=== PATIENT | male | born 1980 | race Caucasian/White ===

== ENCOUNTER 2020-09-19 12:20 | Emergency (ER) | payer MEDICAID, SELFPAY ==
--- NOTE | ~2020-09-19 | CT_ITS ---
EXAMINATION: CT ABDOMEN AND PELVIS WITH CONTRAST CLINICAL INFORMATION: Diffuse rebound tenderness COMPARISON: None TECHNIQUE: Multidetector volumetric images were obtained from the superior aspect of the liver through the pubic symphysis following administration 85 mL of Omnipaque 350 intravenous contrast. Sagittal and coronal reformatted images were obtained on the technologist's workstation. Oral contrast: No This CT examination was performed using dose optimization techniques as appropriate, variously including the following: *Automated exposure control *Adjustment of mA and/or kV according to patient size (this includes techniques or standardized protocols for targeted exams where dose is matched to indication/reason for exam; i.e. extremities or head) *Use of iterative reconstruction technique DLP: 539 mGy-cm FINDINGS: LUNG BASES: Some mild tree-in-bud changes are present at the lung bases indicative of airway disease. LIVER, GALLBLADDER, AND BILIARY TREE: The liver is normal in size, shape, and attenuation. No focal hepatic lesion or biliary ductal dilatation is present. The gallbladder is unremarkable with no evidence of radiopaque gallstones, gallbladder wall thickening, or obvious pericholecystic inflammatory changes. PANCREAS: Unremarkable. SPLEEN: Unremarkable. ADRENAL GLANDS: Unremarkable. KIDNEYS AND URETERS: The kidneys are normal in size, shape, and attenuation. A small cyst is present in the mid right kidney. No solid masses are seen. No hydronephrosis, hydroureter, or calculi seen. No perinephric stranding. BLADDER: Unremarkable. GASTROINTESTINAL TRACT: The small and large bowel are unremarkable. The appendix is unremarkable. ABDOMINAL WALL: No significant hernia is appreciated. LYMPH NODES: No retroperitoneal lymphadenopathy. VASCULAR: Calcific atherosclerotic plaque in the aorta and iliac vessels but no aneurysm. PELVIC VISCERA: Prostate and seminal vesicles appear normal. No ascites is present. No free air is seen. OSSEOUS STRUCTURES: Mild spondylitic changes present in the spine. Posterior osteophyte protrudes mildly into the thecal sac at L4-L5. CT/CT abdomen pelvis w con IMPRESSION: A cause for the patient's rebound tenderness is not found. No significant abnormality is detected. Incidental findings described above.
[2020-09-19 13:51] VITALS: PULSE 92; RESP 16; TEMP 36.6; O2SAT 99; BMI 27.1
[2020-09-19 15:51] LABS: MANUAL DIFF FLAG NO
[2020-09-19 15:52] LABS: Basophils Percent Auto 0.4 % (0-2); Eosinophils Absolute Auto 0.3 X10*3/uL (0.0-0.4); Hematocrit 44.6 % (42-52); Hemoglobin 15.7 g/dl (14.0-18.0); Imm Gran Abs Auto 0.03 X10*3/uL (0.00-0.03); Imm Gran Pct Auto 0.4 % (0.0-0.4); Lymphocytes Absolute Auto 3.1 X10*3/uL (1.2-4.9); Lymphocytes Percent Auto 41.9 % (20-40); Mean Corpuscular HGB Conc 35.2 g/dl (31.0-36.0); Mean Corpuscular Hemoglobin 31.2 pg (27.0-33.0); Mean Corpuscular Volume 88.5 fL (80-98); Mean Platelet Volume 10.1 fL (9.4-12.4); Monocytes Absolute Auto 0.5 X10*3/uL (0.1-1.2); Monocytes Percent Auto 7.1 % (2-11); Neutrophils Absolute Auto 3.4 X10*3/uL (2.0-8.3); Neutrophils Percent Auto 46.2 % (45-73); Platelet Count 194 X10*3/uL (160-400); Red Blood Count 5.04 X10*6/uL (4.60-5.80); Red Cell Distribution Width 12.9 % (11.0-16.0); White Blood Count 7.3 X10*3/uL (4.8-10.8)
[2020-09-19 16:18] LABS: Anion Gap 17 (12-20); Blood Urea Nitrogen 10 mg/dL (9-16); Calcium 9.4 mg/dL (8.4-10.2); Carbon Dioxide 26 mmol/L (22-29); Chloride 106 mmol/L (96-108); Creatinine Clr Calc Pharmacy 146.1; Estimated Glomerular Filt Rate > 60; Glucose Random 98 mg/dL (60-115); Potassium 4.1 mmol/L (3.3-5.1); Sodium 145 mmol/L (135-145)
[2020-09-19] MEDS: Acetaminophen 325 MG TABLET 650 MG PO (17:59)
--- NOTE | 2020-09-19 18:11 | ED.ABDPAIN ---
HPI - Abdominal Pain General Chief Complaint: Abdominal Pain Stated Complaint: abdominal pain Source: patient Mode of arrival: ambulatory Limitations: no limitations History of Present Illness HPI narrative: 39-year-old male presents with 3 days of 10/10 lower abdominal pain primarily on the right side radiating down into the pelvis. States that is very difficult to move and that his abdomen is very tender to touch. He also mentioned that he had some umbilical erythema with some purulent drainage from the site. He does not have any prior abdominal surgeries. He does report drinking alcohol last night to help alleviate the pain. He does not report any chest pain or pressure, palpitations, shortness of breath, shortness breath on exertion, fevers, chills, nausea, vomiting, diarrhea, constipation, testicular pain, penile pain, edema, loss of balance, loss of sensation, or any other concerning symptoms. MD elicited complaint: abdominal pain Onset (ago): day(s) (Three) Pain Consistency: constant Location: RLQ, LLQ and suprapubic Severity: severe Pain scale (0-10): 10 Quality: aching Exacerbating factors: movement Relieving factors: nothing Associated symptoms: denies other symptoms Related Data Previous Rx's Medication Instructions Recorded amoxicillin-pot clavulanate 1 tab PO Q12H 10 Days #20 tab 09/19/20 [Augmentin] Allergies Allergy/AdvReac Type Severity Reaction Status Date / Time No Known Allergies Allergy Verified 09/19/20 18:18 Review of Systems Review of Systems Constitutional: No Weight loss, No Fever, No Chills, positive Night Sweats, No Fatigue, No Malaise ENT/Mouth: No Hearing loss, No Ear Pain, No Nasal Congestion, No Sinus Pain, No Hoarseness, No sore throat, No Rhinorrhea, No Swallowing Difficulty Eyes: No Eye Pain, No Swelling, No Redness, No Foreign Body, No Discharge, No Vision Changes Cardiovascular: No Chest Pain, No SOB, No Dyspnea on Exertion, No Orthopnea, No Edema, No Palpitations Respiratory: No Cough, No Sputum, No Wheezing, No Smoke Exposure, No Dyspnea Gastrointestinal: No Nausea, now Vomiting, no Diarrhea, positive abdominal Pain, No Hematochezia, No Melena Genitourinary: no irregular bleeding, No Dysuria, No Urinary Frequency, No Hematuria, No Urinary Incontinence, No Urgency, No Flank Pain, No Urinary Flow Changes, No Hesitancy Musculoskeletal: No joint pain, No Myalgias, No Joint Swelling Skin: Umbilical erythema with purulent drainage, No Skin Lesions, No rash Neuro: No Weakness, No Numbness, No Paresthesias, No Loss of Consciousness, No Dizziness, No Headache Psych: No Anxiety/Panic, No Depression, No SI/HI/AH/VH, No Social Issues Heme/Lymph: No Bruising, No Bleeding,No Lymphadenopathy Endocrine: No Polyuria, No Polydipsia, No Temperature Intolerance Yes all other systems are reviewed and are negative Physical Exam Vital Signs: Vital Signs: Last Vital Signs Temp 98 F 09/19/20 13:51 Pulse 92 09/19/20 13:51 Resp 16 09/19/20 13:51 Pulse Ox 99 09/19/20 13:51 Body Mass Index 27.1 Appearance: Alert. Oriented X3. Moderate distress. Head: Normal external exam. Normocephalic. Atraumatic. Facial erythema noted. Eyes: PERRLA. EOMI. Conjunctiva and sclera normal. Eyelids normal. ENT: TM's Normal. Pharynx normal. Uvula midline. Moist mucous membranes. No trismus noted. No drooling noted. No muffled voice noted. Neck: Normal inspection. Neck supple. No adenopathy. CVS: Tachycardic heart rate and rhythm. Heart sound normal. No murmurs noted. Pulses equal to all extremities. Respiratory: No respiratory distress. Painless inspiration. Lung sounds clear to auscultation all lobes. Chest nontender. No accessory muscle usage noted or decreased air movement noted. Abdomen: Soft and diffusely tender with rebound tenderness on the right lower quadrant. Bowel sounds normal in all 4 quadrants. No distention noted. No organomegaly noted. No visible injury noted. Back: No CVA tenderness. Full range of motion noted. Genitourinary: No testicular pain or abnormalities noted. Skin: Erythema to the umbilicus, Skin warm and dry. Normal skin color. Normal skin turgor. No rashes/lesions/lacerations noted. Extremities: No lower extremity edema. Extremities exhibit normal range of motion. Extremities nontender. Neuro: cranial nerves 2-12 intact, no focal neural deficits, strength 5/5 to all extremities, No motor deficit. No sensory deficit. Course Course Course Narrative: 39-year-old male with no significant past medical history presents with 3 days of 10/10 abdominal pain. States that he feels like he has a hernia, and he is unable to touch his abdomen because of the pain. States that he did drink alcohol to alleviate his pain last night and this morning. 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 Does not report any fevers or chills, CBC and Chem 7 completed in the emergency department waiting room. Lab values are within normal limits. Based on patient's physical exam of diffuse tenderness with rebound will order CT scan of the abdomen pelvis, add on lipase and LFTs. LFTs and liver enzymes are negative. Urinalysis is negative. CT scan is negative for acute findings. Will treat for cellulitis. Patient verbalized understanding of and agrees to plan of care discharge home. MDM - Abdominal Pain Differential Diagnosis Differential diagnosis: Likely abdominal pain, acute appendicitis, bowel perforation, calculus of kidney and diverticulitis Medical Records Attestation: I reviewed the patient's medical records. Lab Data Attestation: I reviewed the patient's lab results. Result diagrams: 09/19/20 15:38 09/19/20 15:38 Labs: Lab Results 09/19/20 09/19/20 09/19/20 Range/Units 15:38 15:38 18:38 WBC 7.3 (4.8-10.8) X10*3/uL RBC 5.04 (4.60-5.80) X10*6/uL Hgb 15.7 (14.0-18.0) g/dl Hct 44.6 (42-52) % MCV 88.5 (80-98) fL MCH 31.2 (27.0-33.0) pg MCHC 35.2 (31.0-36.0) g/dl RDW 12.9 (11.0-16.0) % Plt Count 194 (160-400) X10*3/uL MPV 10.1 (9.4-12.4) fL Immature Gran % (Auto) 0.4 (0.0-0.4) % Neut % (Auto) 46.2 (45-73) % Lymph % (Auto) 41.9 H (20-40) % [place] % (Auto) 7.1 (2-11) % Eos % (Auto) 4.0 (0-4) % Baso % (Auto) 0.4 (0-2) % Lymph # (Auto) 3.1 (1.2-4.9) X10*3/uL [place] # (Auto) 0.5 (0.1-1.2) X10*3/uL Eos # (Auto) 0.3 (0.0-0.4) X10*3/uL Baso # (Auto) 0.0 (0.0-0.2) X10*3/uL Abs Immat Gran (auto) 0.03 (0.00-0.03) X10*3/uL Absolute Neuts (auto) 3.4 (2.0-8.3) X10*3/uL Absolute Nucleated RBC 0.000 (0.0-0.012) X10*3/uL Nucleated RBC % (auto) 0.0 (0.0-0.2) /100WBC PT 11.6 (10.8-13.0) SEC INR 1.0 (0.9-1.1) APTT 36.8 (24.1-38.0) SEC Sodium 145 (135-145) mmol/L Potassium 4.1 (3.3-5.1) mmol/L Chloride 106 (96-108) mmol/L Carbon Dioxide 26 (22-29) mmol/L Anion Gap 17 (12-20) BUN 10 (9-16) mg/dL Creatinine 0.73 (0.5-1.4) mg/dL Estim Creat Clear Calc 146.1 Estimated GFR > 60 Random Glucose 98 (60-115) mg/dL Calcium 9.4 (8.4-10.2) mg/dL Magnesium (1.6-2.6) mg/dL Total Bilirubin (0.0-1.0) mg/dL Direct Bilirubin (0.0-0.5) mg/dL AST (5-37) U/L ALT (0-40) U/L Alkaline Phosphatase (39-117) U/L Total Protein (6.5-8.0) g/dL Albumin (3.5-5.0) g/dL Lipase (8-78) U/L Urine Color Urine Appearance Urine pH (5.0-8.0) Ur Specific [place] (1.005-1.025) Urine Protein (NEG-TRACE) MG/DL Urine Glucose (UA) (NEG) MG/DL Urine Ketones (NEG) MG/DL Urine Blood (NEG) Urine Nitrite (NEG) Ur Leukocyte Esterase (NEG) Ethyl Alcohol mg/dL 09/19/20 09/19/20 09/19/20 Range/Units 18:38 18:38 19:47 WBC (4.8-10.8) X10*3/uL RBC (4.60-5.80) X10*6/uL Hgb (14.0-18.0) g/dl Hct (42-52) % MCV (80-98) fL MCH (27.0-33.0) pg MCHC (31.0-36.0) g/dl RDW (11.0-16.0) % Plt Count (160-400) X10*3/uL MPV (9.4-12.4) fL Immature Gran % (Auto) (0.0-0.4) % Neut % (Auto) (45-73) % Lymph % (Auto) (20-40) % [place] % (Auto) (2-11) % Eos % (Auto) (0-4) % Baso % (Auto) (0-2) % Lymph # (Auto) (1.2-4.9) X10*3/uL [place] # (Auto) (0.1-1.2) X10*3/uL Eos # (Auto) (0.0-0.4) X10*3/uL Baso # (Auto) (0.0-0.2) X10*3/uL Abs Immat Gran (auto) (0.00-0.03) X10*3/uL Absolute Neuts (auto) (2.0-8.3) X10*3/uL Absolute Nucleated RBC (0.0-0.012) X10*3/uL Nucleated RBC % (auto) (0.0-0.2) /100WBC PT (10.8-13.0) SEC INR (0.9-1.1) APTT (24.1-38.0) SEC Sodium (135-145) mmol/L Potassium (3.3-5.1) mmol/L Chloride (96-108) mmol/L Carbon Dioxide (22-29) mmol/L Anion Gap (12-20) BUN (9-16) mg/dL Creatinine (0.5-1.4) mg/dL Estim Creat Clear Calc Estimated GFR Random Glucose (60-115) mg/dL Calcium (8.4-10.2) mg/dL Magnesium 2.0 (1.6-2.6) mg/dL Total Bilirubin 0.3 (0.0-1.0) mg/dL Direct Bilirubin < 0.2 (0.0-0.5) mg/dL AST 25 (5-37) U/L ALT 26 (0-40) U/L Alkaline Phosphatase 78 (39-117) U/L Total Protein 6.8 (6.5-8.0) g/dL Albumin 4.3 (3.5-5.0) g/dL Lipase 71 (8-78) U/L Urine Color YELLOW Urine Appearance CLEAR Urine pH 6.0 (5.0-8.0) Ur Specific [place] 1.025 (1.005-1.025) Urine Protein NEG (NEG-TRACE) MG/DL Urine Glucose (UA) NEG (NEG) MG/DL Urine Ketones NEG (NEG) MG/DL Urine Blood NEG (NEG) Urine Nitrite NEG (NEG) Ur Leukocyte Esterase NEG (NEG) Ethyl Alcohol 159 mg/dL Imaging Data CT scan abdomen pelvis with contrast: Attestation: I personally reviewed and interpreted this imaging study as follows: Radiologist's impression: FINDINGS: LUNG BASES: Some mild tree-in-bud changes are present at the lung bases indicative of airway disease. LIVER, GALLBLADDER, AND BILIARY TREE: The liver is normal in size, shape, and attenuation. No focal hepatic lesion or biliary ductal dilatation is present. The gallbladder is unremarkable with no evidence of radiopaque gallstones, gallbladder wall thickening, or obvious pericholecystic inflammatory changes. PANCREAS: Unremarkable. SPLEEN: Unremarkable. ADRENAL GLANDS: Unremarkable. KIDNEYS AND URETERS: The kidneys are normal in size, shape, and attenuation. A small cyst is present in the mid right kidney. No solid masses are seen. No hydronephrosis, hydroureter, or calculi seen. No perinephric stranding. BLADDER: Unremarkable. GASTROINTESTINAL TRACT: The small and large bowel are unremarkable. The appendix is unremarkable. ABDOMINAL WALL: No significant hernia is appreciated. LYMPH NODES: No retroperitoneal lymphadenopathy. VASCULAR: Calcific atherosclerotic plaque in the aorta and iliac vessels but no aneurysm. PELVIC VISCERA: Prostate and seminal vesicles appear normal. No ascites is present. No free air is seen. OSSEOUS STRUCTURES: Mild spondylitic changes present in the spine. Posterior osteophyte protrudes mildly into the thecal sac at L4-L5. CT/CT abdomen pelvis w con IMPRESSION: A cause for the patient's rebound tenderness is not found. No significant abnormality is detected. Incidental findings described above. ECG Data Attestation: I personally reviewed and interpreted this ECG as follows: ECG interpretation date: 09/19/20 ECG interpretation time: 19:03 Prior ECG tracings: not available for review Interpretation: Vent. rate 76 BPM WV interval 188 ms QRS duration 100 ms QT/QTc 380/427 ms P-R-T axes 51 62 57 Normal sinus rhythm Normal ECG No previous ECGs available Discharge Plan Discharge Clinical Impression: Cellulitis Qualifiers: Site of cellulitis: trunk Site of cellulitis of trunk: umbilicus Qualified Code(s): L03.316 - Cellulitis of umbilicus Patient Disposition: Home, Self-Care Instructions: Cellulitis (ED) Additional Instructions: You were evaluated for abdominal pain, with drainage from the umbilicus, which is the belly button. CT scan of the abdomen is negative for acute findings. We are treating for cellulitis with Augmentin. Please take this medication as directed and complete the entire course. Thank you for choosing this emergency department for evaluation. Please follow-up with primary care physician as needed. Return to the emergency department for any new, concerning, or worsening symptoms. Prescriptions: New amoxicillin-pot clavulanate [Augmentin] 875-125 mg tablet 1 tab PO Q12H 10 Days Qty: 20 RF: 0 Stand Alone Forms: Work/School Release Interventions: ED Discharge Assessment Last Done: 09/19/20 21:48 PENDING SALE TO [facility] Past Medical History Attestation statement: The following information was validated with the patient. Source: old records reviewed Social History Social History Advance Directives: No Advance Directives Information Provided: No
--- NOTE | 2020-09-19 18:18 | ECG_ITS ---
Test Reason : ABDOMINAL PAIN Blood Pressure : / mmHG Vent. Rate : 076 BPM Atrial Rate : 076 BPM P-R Int : 188 ms QRS Dur : 100 ms QT Int : 380 ms P-R-T Axes : 051 062 057 degrees QTc Int : 427 ms Normal sinus rhythm Normal ECG No previous ECGs available Referred By: Melina Gibson Electronically Signed By:THADDEUS DOMINGUEZ MD
[2020-09-19 18:53] LABS: Prothrombin Time 11.6 SEC (10.8-13.0)
[2020-09-19 18:55] LABS: Partial Thromboplastin Time 36.8 SEC (24.1-38.0)
[2020-09-19] MEDS: Morphine Sulfate 4 MG/ML CARTRIDGE IVPUSH (19:01)
[2020-09-19] MEDS: 0.9 % Sodium Chloride 1,000 ML 999 ML IVCONT (19:01)
[2020-09-19 19:17] LABS: Ethanol 159 mg/dL
[2020-09-19 19:50] LABS: Alanine Aminotransferase 26 U/L (0-40); Albumin Level 4.3 g/dL (3.5-5.0); Alkaline Phosphatase 78 U/L (39-117); Aspartate Amino Transferase 25 U/L (5-37); Bilirubin Direct < 0.2 mg/dL (0.0-0.5); Bilirubin Total 0.3 mg/dL (0.0-1.0); Lipase 71 U/L (8-78); Total Protein 6.8 g/dL (6.5-8.0)
[2020-09-19 19:52] LABS: Glucose Urine UA NEG (NEG); Leukocyte Esterase Urine NEG (NEG); Nitrite Urine NEG (NEG); Specific Gravity - Urine 1.025 (1.005-1.025); Urine Blood NEG (NEG); Urine Ketones NEG (NEG); Urine Protein NEG (NEG-TRACE)
[2020-09-19 19:54] LABS: Appearance Urine CLEAR; Color Urine YELLOW
[2020-09-19] MEDS: iohexoL 350 MG/ML 100 ML INFUS..BTL IV (20:15)
[2020-09-19] MEDS: Amoxicillin/Potassium Clav 875 MG TABLET PO (21:43)
== END 2020-09-19 21:50 | disposition home or self-care (01) ==
PROVIDERS: Nurse Practitioner Family; Emergency Provider Internal Medicine
DX: L03.316 Cellulitis of umbilicus (principal)
CPT/HCPCS: 36415; 74177; 80048; 80076; 81003; 82077; 83690; 83735; 85025; 85610; 85730; 93005; 96361; 96374; 99284; J2270; Q9967

== ENCOUNTER 2020-10-15 14:33 | Emergency (ER) | payer MEDICAID, SELFPAY ==
--- NOTE | ~2020-10-15 | XR_ITS ---
EXAMINATION: XR FOREARM, RIGHT CLINICAL INFORMATION: Trauma COMPARISON: None TECHNIQUE: AP and lateral views of the right forearm were obtained. FINDINGS: The bones and soft tissues are normal. No fracture. Imaged portions of the elbow and wrist are unremarkable. XR/XR forearm RT 2V IMPRESSION: Normal right forearm.
[2020-10-15 14:43] VITALS: BP 140/91; BP 96/68; PULSE 91; PULSE 98; RESP 14; TEMP 36.2; O2SAT 97; BMI 30.9
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
[2020-10-15] MEDS: Nicotine Polacrilex 2 MG GUM BUCCAL (16:23)
[2020-10-15 16:28] LABS: Amphetamine Screen Urine Not Detected (Not Detect); Barbiturates, Urine Not Detected (Not Detect); Benzodiazepines Screen Urine Not Detected (Not Detect); Cannabinoid Screen Urine POSITIVE (Not Detect); Cocaine Screen Urine Not Detected (Not Detect); Opiate Screen Urine Not Detected (Not Detect); Phencyclidine Screen Urine Not Detected (Not Detect)
[2020-10-15 16:34] LABS: MANUAL DIFF FLAG NO
[2020-10-15 16:36] LABS: Basophils Percent Auto 0.5 % (0-2); Eosinophils Absolute Auto 0.2 X10*3/uL (0.0-0.4); Eosinophils Percent Auto 3.7 % (0-4); Hematocrit 46.7 % (42-52); Hemoglobin 16.8 g/dl (14.0-18.0); Imm Gran Abs Auto 0.03 X10*3/uL (0.00-0.03); Imm Gran Pct Auto 0.5 % (0.0-0.4); Lymphocytes Absolute Auto 2.5 X10*3/uL (1.2-4.9); Lymphocytes Percent Auto 38.5 % (20-40); Mean Corpuscular Hemoglobin 31.5 pg (27.0-33.0); Mean Corpuscular Volume 87.5 fL (80-98); Mean Platelet Volume 9.8 fL (9.4-12.4); Monocytes Absolute Auto 0.7 X10*3/uL (0.1-1.2); Monocytes Percent Auto 10.8 % (2-11); Platelet Count 183 X10*3/uL (160-400); Red Blood Count 5.34 X10*6/uL (4.60-5.80); Red Cell Distribution Width 13.4 % (11.0-16.0); White Blood Count 6.6 X10*3/uL (4.8-10.8)
[2020-10-15 16:56] LABS: COVID-19 Test Negative (Negative)
[2020-10-15 17:03] LABS: Ethanol 320 mg/dL
[2020-10-15 17:04] LABS: Anion Gap 15 (12-20); Blood Urea Nitrogen 8 mg/dL (9-16); Calcium 8.8 mg/dL (8.4-10.2); Carbon Dioxide 23 mmol/L (22-29); Chloride 108 mmol/L (96-108); Creatinine Clr Calc Pharmacy 160.4; Estimated Glomerular Filt Rate > 60; Glucose Random 93 mg/dL (60-115); Sodium 142 mmol/L (135-145)
[2020-10-15] MEDS: Lidocaine 4 % Patch ADH..PATCH 1 PATCH TRANSDERMA (18:01)
--- NOTE | 2020-10-15 20:08 | MHC.CARE ---
PT will not be clinically sober until 130am. According to [facility], pt will be section 35'd tomorrow morning and will be picked up from ED.
[2020-10-16 01:02] VITALS: BP 142/90; PULSE 99; RESP 17; TEMP 36.7; O2SAT 94
--- NOTE | 2020-10-16 01:13 | MHC.CARE ---
T/W called [facility] for more clarity on pt's 35. [facility] reported they will not be sending a clinician to see pt due to pt being on an active warrant and was told by his that D will be picking him up on that tomorrow. If pt is not picked up in the morning, contact [facility] and or [facility] will come assess pt prior to d/c. According to [facility] supervisor edging, the 35 process was completed late afternoon and the warrant will be active tomorrow morning and they are aware that pt is here in the ED.
--- NOTE | 2020-10-16 06:19 | PC.NURSE ---
Patient slept through the night, symptomatic of withdrawal, per patient he never had withdrawal symptoms, VSS, section 35 was processed by his , patient will picked up in the morning, see care team note for further update, will continue to monitor.
--- NOTE | 2020-10-16 07:11 | PC.NURSE ---
patient remained asleep at change of shift arose to use restroom and asked for hand soap. patient appears in no distress at present.
== END 2020-10-16 09:19 ==
PROVIDERS: Nurse Practitioner Family; Emergency Provider Emergency Medicine
DX: F10.129 Alcohol abuse with intoxication, unspecified (principal); Y90.8 Blood alcohol level of 240 mg/100 ml or more; M79.631 Pain in right forearm; F31.9 Bipolar disorder, unspecified; Z20.822 Contact with and (suspected) exposure to COVID-19
CPT/HCPCS: 36415; 73090; 80048; 80307; 82077; 85025; 87635; 99284; 99285